=== PATIENT | female | born 1980 | race Two or more races ===

== ENCOUNTER 2020-06-25 17:04 | Observation (INO) | payer OTHER, SELFPAY ==
--- NOTE | 2020-06-25 16:53 | PC.NURSE ---
pt walked into er with c/o leaking fluid. states she is 30 weeks with expectant due date of September 01. States fluid started leaking yesterday and feel like the baby dropped. c/o pelvic pressure. called ob. report given to Katarina MOE. Taken to OB via wheelchair
[2020-06-25 17:38] VITALS: BP 98/62; PULSE 90
--- NOTE | 2020-06-26 17:26 | PM.OBTRLD ---
OB - Triage/Final Diagnosis Visit Information Comments/Additional reasons for admission: I have assessed the risk for this patient, Noelle Collado, and determined that she would benefit from observation care. Final Diagnosis (1) Vaginal discharge during : Code(s): O26.899 - Other specified related conditions, unspecified trimester; N89.8 - Other specified noninflammatory disorders of vagina Status: Acute
== END 2020-06-25 17:47 | disposition home or self-care (01) ==
PROVIDERS: Admitting Provider Obstetrics & Gynecology; Visit Provider Obstetrics & Gynecology
DX: O26.892 Other specified pregnancy related conditions, second trimester (principal); N89.8 Other specified noninflammatory disorders of vagina; Z3A.29 29 weeks gestation of pregnancy
CPT/HCPCS: 84112; G0378; G0379

== ENCOUNTER 2020-07-02 08:09 | Outpatient (CLI) | payer OTHER, SELFPAY ==
[2020-07-02 08:46] LABS: Glucose Fasting Gestational 88 mg/dL (>/=95)
[2020-07-02 10:14] LABS: Glucose 1 Hour Gest 120 mg/dL (>/=180)
[2020-07-02 11:09] LABS: Glucose 2 Hour Gest 101 mg/dL (>/= 155)
[2020-07-02 12:14] LABS: Glucose 3 Hour Gest 90 mg/dL (>/=140)
== END 2020-07-02 08:10 | disposition home or self-care (01) ==
PROVIDERS: Visit Provider Obstetrics & Gynecology
DX: R73.02 Impaired glucose tolerance (oral) (principal)
CPT/HCPCS: 36415; 82951; 82952

== ENCOUNTER 2020-07-25 12:12 | Observation (INO) | payer OTHER, SELFPAY ==
--- NOTE | ~2020-07-25 | US_ITS ---
EXAMINATION: US OB limited w BPP EXAM DATE: 07/25/2020 13:46 INDICATION: BPP, SHELLEY, placenta and incision check/abd pain. Low abdominal pain. 3rd trimester. TECHNIQUE: Pelvic obstetrical transabdominal sonogram was performed by a technologist. There are mu ltiple grayscale and Doppler images available for interpretation. Comparison is made to prior examina tion from 07/23/2020. FINDINGS: Scanning of a prior section scar demonstrated no sonographic abnormality. There is a single fetus identified in vertex presentation with a heart rate of 173 beats per minute. The plac enta is located in the fundal position. There is no sonographic evidence of retroplacental hemorrhag e identified. The amniotic fluid index is 13.9 centimeters, which is normal. BIOPHYSICAL PROFILE (performed by the technologist) breathing (30 sec sustained breathing in 30 minutes): 2 out of 2 movement (3 gross body movements in 30 minutes): 2 out of 2 tone (one episode of yxvmfen-nrbsgipyv-ohpfhpq limb movement): 2 out of 2 Amniotic fluid pocket (2 cm): 2 out of 2 Total score: 8 out of 8 IMPRESSION: 1. Single fetus with heart rate of 173 bpm. 2. Normal biophysical profile score of 8 out of 8. 3. Normal SHELLEY 14 cm. Reviewed, dictated and finalized at location A.
--- NOTE | 2020-07-25 12:25 | PC.NURSE ---
Called Dr. Leon with pt status. Informed of pt complaining of contractions. states low lying placenta with no follow up report. Dr. Leon able to look up results from follow up and confirm that it was no longer low lying. Orders received.
[2020-07-25 12:36] VITALS: BP 113/68; PULSE 96
[2020-07-25 13:01] VITALS: BP 100/69; PULSE 89
[2020-07-25] MEDS: LACTATED RINGERS 1,000 ML 999 ML IV CONT (13:06)
--- NOTE | 2020-07-25 13:20 | PC.NURSE ---
Called Dr. Leon with update. Occasional contractions seen on monitor that palpate mild. Abdomen soft. Some uterine irritability noted. Reactive tracing. Orders received.
[2020-07-25 13:30] LABS: Add Urine Microscopic? YES; Appearance Urine Cloudy (Clear); Bacteria Urine 1+ /hpf; Bilirubin Urine Negative (Negative); Blood Urine Negative (Negative); Color Urine Yellow (Yellow); Glucose Urine UA Negative (Negative); Ketones Urine Negative (Negative); Leukocyte Esterase Ur Trace LEU/UL (Negative); Mucus Urine Rare /lpf; Nitrate Urine Negative (Negative); Protein Urine Negative (Negative); Specific Grav Ur 1.011 (1.001-1.035); Squamous Epithelial Cell Urine Few /hpf (Few); Transitional Epi Cells Urine Rare /hpf (None Seen); Urobilinogen Urine Negative mg/dL (<2.0); WBC Urine 0-3 /hpf
--- NOTE | 2020-07-27 12:07 | PM.OBTRLD ---
OB - Triage/Final Diagnosis Visit Information Comments/Additional reasons for admission: I have assessed the risk for this patient, Noelle Ovalle, and determined that she would benefit from observation care. Evaluation Laboratory results: Laboratory Tests 07/25/20 13:18 Urine Color Yellow Urine Appearance Cloudy H Urine pH 8.0 Ur Specific [place] 1.011 Urine Protein Negative Urine Glucose (UA) Negative Urine Ketones Negative Ur Blood (Man) Negative Urine Nitrate Negative Urine Bilirubin Negative Urine Urobilinogen Negative Leukocyte Esterase Rfl Trace H Urine RBC 3-5 H Urine WBC 0-3 Ur Squamous Epith Cells Few Ur Transition Epith Cell Rare Urine Bacteria 1+ H Urine Mucus Rare Final Diagnosis (1) Abdominal pain affecting : Code(s): O26.899 - Other specified related conditions, unspecified trimester; R10.9 - Unspecified abdominal pain Status: Acute
== END 2020-07-25 14:45 | disposition home or self-care (01) ==
PROVIDERS: Admitting Provider Obstetrics & Gynecology; Visit Provider Obstetrics & Gynecology
DX: O26.893 Other specified pregnancy related conditions, third trimester (principal); R10.9 Unspecified abdominal pain; Z3A.34 34 weeks gestation of pregnancy
CPT/HCPCS: 76815; 76819; 81001; 96360; G0378; G0379; J7120

== ENCOUNTER 2020-08-11 11:57 | Observation (INO) | payer OTHER, SELFPAY ==
--- NOTE | 2020-08-11 14:22 | OBADM ---
This patient, Noelle Ovalle, admitted to the OB room Labor/Delivery/Recovery 120 for observation. Patient/family oriented to hospital policies and general routines including ID bracelet, bed and alarms, visiting hours, pain management, procedures, bathroom and other care routines, personal items, smoking policy, room service/diet, and visiting hours. Patient/Family are encouraged to report perceived risks to care and to ask questions if they do not understand what they are told or what they should do.
--- NOTE | 2020-08-17 07:25 | PM.OBTRLD ---
OB - Triage/Final Diagnosis Visit Information Comments/Additional reasons for admission: I have assessed the risk for this patient, Noelle Ovalle, and determined that she would benefit from observation care. Final Diagnosis (1) Abdominal pain affecting : Code(s): O26.899 - Other specified related conditions, unspecified trimester; R10.9 - Unspecified abdominal pain Status: Acute
== END 2020-08-11 14:35 | disposition home or self-care (01) ==
PROVIDERS: Admitting Provider Obstetrics & Gynecology; Visit Provider Obstetrics & Gynecology
DX: O26.893 Other specified pregnancy related conditions, third trimester (principal); R10.9 Unspecified abdominal pain; Z3A.37 37 weeks gestation of pregnancy
CPT/HCPCS: G0378; G0379

== ENCOUNTER 2020-08-13 11:43 | Outpatient (RCR) | payer OTHER, SELFPAY ==
[2020-07-07 16:41] VITALS: BP 100/55
[2020-07-23 12:10] VITALS: BP 106/63
--- NOTE | 2020-07-23 13:00 | PC.NURSE ---
BPP 09/19
[2020-07-30 12:58] VITALS: BP 103/60; PULSE 99
[2020-08-06 12:09] VITALS: BP 95/68; PULSE 104
--- NOTE | ~2020-08-13 | US_ITS ---
EXAMINATION: US OB follow up DATE: 08/06/2020 12:38 INDICATION: Advanced maternal age, third trimester TECHNIQUE: Real-time ultrasound of the pelvis was performed. The interpreting radiologist was not pre sent for the study. COMPARISON: 07/30/2020 FINDINGS: There is a single living fetus in vertex presentation and transverse lie. The placenta is f undal. cardiac activity and movement are noted. heart rate is 157 beats per minute (bpm). The amniotic fluid index is 9.3 cm which is normal. The following biometric data were obtained: Biparietal diameter (BPD): 9.1 cm; head circumference (HC): 31.9 cm; abdominal circumference (AC): 31 .7 cm; femur length (FL): 6.3 cm. All calculated ratios are greater than two standard deviations belo w the mean except for the head circumference to abdominal circumference ratio which is normal. Estima neida weight is 2576 g +/- 386 g, which correlates with the 21st percentile when 09/01/2020 is use d as estimated date of delivery. As single measurements, these parameters are each equal to the following estimated gestational ages w ith ranges of +/- 2 standard deviations: BPD: 37 weeks 0 days +/- 3 weeks 1 days. HC: 36 weeks 0 days +/- 3 weeks 0 days. AC: 35 weeks 5 days +/- 3 weeks 0 days. FL: 32 weeks 4 days +/- 3 weeks 0 days. estimated gestational age based solely on measurements from this exam is 35 weeks 2 days +/- 2 weeks 3 days. IMPRESSION: 1. Single living fetus in vertex presentation. 2. Normal amniotic fluid index. 3. Estimated weight is 2576 g +/- 386 g, which correlates with the 21st percentile when 09/02/19 21 is used as estimated date of delivery. Reviewed, dictated and finalized at location A. IMPRESSION: 1. Single living fetus in vertex presentation. 2. Normal amniotic fluid index. 3. Estimated weight is 2576 g +/- 386 g, which correlates with the p ercentile when 09/01/2020 is used as estimated date of delivery.
--- NOTE | ~2020-08-13 | US_ITS ---
EXAMINATION: US OB BPP wo non-stress DATE: 07/23/2020 13:16 CDT INDICATION: Advanced maternal age TECHNIQUE: Real-time transabdominal obstetric ultrasound. FINDINGS: No prior studies for comparison. There is a single living fetus in vertex presentation. The placenta is fundal without placenta previ a. cardiac activity and movement is noted with a heart rate of 142 beats per minute. Biophysical profile: breathin of 2 movement: 2 of 2 tone: 2 of 2 Amniotic flud pocket: 2 of 2 Total score: 8 of 8 IMPRESSION: 1. Single living intrauterine in vertex presentation. 2: Total biophysical profile score of 8/8. Reviewed, dictated and finalized at location B.
--- NOTE | ~2020-08-13 | US_ITS ---
EXAMINATION: US OB BPP wo non-stress DATE: 08/13/2020 12:51 INDICATION: History of loss, advanced maternal age, third trimester TECHNIQUE: Real-time pelvic ultrasound was performed. The interpreting radiologist was not present fo r the study. COMPARISON: 08/06/2020 FINDINGS: There is a single living fetus in vertex presentation. The placenta is fundal. heart rate is 15 9 beats per minute (bpm). Biophysical profile performed by the technologist: breathing (30 sec sustained breathing in 30 minutes): 2 out of 2 movement (3 gross body movements in 30 minutes): 2 out of 2 tone (one episode of lrzgolq-iqsefsqqx-zeijosj limb movement): 2 out of 2 Amniotic fluid pocket (2 cm): 2 out of 2 Total score: 8 out of 8 IMPRESSION: 1. Single living fetus in vertex presentation. 2. Biophysical profile 8 out of 8. Reviewed, dictated and finalized at location B.
--- NOTE | ~2020-08-13 | US_ITS ---
EXAMINATION: US OB limited w BPP DATE: 07/07/2020 16:39 CDT INDICATION: Advanced gestational age. TECHNIQUE: Real-time transabdominal obstetric ultrasound. FINDINGS: No prior studies for comparison. There is a single living fetus in vertex presentation. The placenta is fundal without placenta previ a. Amniotic fluid is normal. SHELLEY measures 20.74 cm. cardiac activity and movement is noted with a heart rate of 167 beats per minute. Biophysical profile: breathin of 2 movement: 2 of 2 tone: 2 of 2 Amniotic flud pocket: 2 of 2 Total score: 8 of 8 IMPRESSION: 1. Single living intrauterine in vertex presentation. 2: Total biophysical profile score of 8/8. Reviewed, dictated and finalized at location A.
--- NOTE | ~2020-08-13 | US_ITS ---
EXAMINATION: US OB BPP wo non-stress DATE: 07/16/2020 12:25 INDICATION: Advanced maternal age. Third trimester. TECHNIQUE: Real-time pelvic ultrasound was performed. COMPARISON: Ultrasound 07/07/2020 FINDINGS: There is a single living fetus in vertex presentation. The placenta is fundal. heart rate is 1 63 beats per minute (bpm). The amniotic fluid volume is subjectively normal. Biophysical profile performed by the technologist: breathing (30 sec sustained breathing in 30 minutes): 2 out of 2 movement (3 gross body movements in 30 minutes): 2 out of 2 tone (one episode of irumnio-fqnrbepry-xqpcryv limb movement): 2 out of 2 Amniotic fluid pocket (2 cm): 2 out of 2 Total score: 8 out of 8 IMPRESSION: 1. Single living fetus in vertex presentation. 2. Biophysical profile 8 out of 8. Reviewed, dictated and finalized at location A.
--- NOTE | ~2020-08-13 | US_ITS ---
EXAMINATION: US OB BPP wo non-stress EXAM DATE: 07/30/2020 12:48 INDICATION: History of term loss. BPP. 3rd trimester. TECHNIQUE: Pelvic obstetrical transabdominal sonogram was performed by a technologist. There are mu ltiple grayscale and Doppler images available for interpretation. Comparison is made to prior examina tion from 07/25/2020. FINDINGS: There is a single fetus identified in vertex presentation with a heart rate of 131 beats pe r minute. The placenta is located in the posterior position. There is no sonographic evidence of ret roplacental hemorrhage identified. There is subjectively expected amount of amniotic fluid. BIOPHYSICAL PROFILE (performed by the technologist) breathing (30 sec sustained breathing in 30 minutes): 2 out of 2 movement (3 gross body movements in 30 minutes): 2 out of 2 tone (one episode of bpddbta-ditgjtegi-cfsgxtl limb movement): 2 out of 2 Amniotic fluid pocket (2 cm): 2 out of 2 Total score: 8 out of 8 IMPRESSION: 1. Single fetus with heart rate of 131 bpm. 2. Normal biophysical profile score of 8 out of 8. Reviewed, dictated and finalized at location B.
[2020-08-13 16:11] VITALS: BP 100/66; PULSE 99
== END 2020-08-18 15:40 | disposition home or self-care (01) ==
LOC: ANHOBOP 11:43
PROVIDERS: Visit Provider Obstetrics & Gynecology
DX: O09.513 Supervision of elderly primigravida, third trimester (principal); O09.293 Supervision of pregnancy with other poor reproductive or obstetric history, third trimester; Z3A.32 32 weeks gestation of pregnancy; Z3A.33 33 weeks gestation of pregnancy; Z3A.34 34 weeks gestation of pregnancy; Z3A.35 35 weeks gestation of pregnancy; Z3A.36 36 weeks gestation of pregnancy; Z3A.37 37 weeks gestation of pregnancy
CPT/HCPCS: 59025; 76815; 76816; 76819

== ENCOUNTER 2020-08-18 11:19 | Inpatient (IN) | payer OTHER, SELFPAY ==
--- NOTE | 2020-08-04 16:23 | PC.NURSE ---
VERIFIED WITH OR SCHEDULE AND PATIENT--C/S WITH TUBAL LIGATION ON 08/25/20 AT 0730 PATIENT GIVEN REQUISITION FOR LAB DRAW ON 08/24/20
[2020-08-18] VITALS (45 sets, daily range): BP systolic 82–109; BP diastolic 45–84; PULSE 58–90; RESP 14–18; TEMP 35.9–36.9; O2SAT 97–100; BMI 33.8
--- NOTE | 2020-08-18 13:20 | PM.IMHP ---
H&P: HPI History of Present Illness Date/Time: 08/18/20 13:20 Noelle is a 40yo @ 38.0wks (TARA 09/01/20) who presented to clinic with complaints of concerns for rupture of membranes and painful contractions. She reported good movement. No bleeding. She was sent to L&D where ROM+ was negative. On NST, she was found to have occasional late decels while taylor q 5-8min. She has had regular care and testing since 32wks. Her is complicated by: - H/o previous ; declined TOLAC - Undesired future fertility; BTL papers signed 07/06/20 - H/o full term twin demise in [place]; concern for mono-mono twin cord entanglement - AMA; NIPT low risk, male-- s/p testing, on ASA Chief Complaint: contractions and leakage of fluid Review of Systems Review of Systems: All systems reviewed & are unremarkable except as noted in HPI and below (HPI) [facility] Family History Family History Other No pertinent family history Social History Social History Substance use: never Spiritual care concerns: No Meds Home Medications and Allergies Home Medications Medication Instructions Recorded Confirmed Type PNV comb no.58-iron bisgly-FA 1 cap PO DAILY 06/25/20 08/11/20 History aspirin 81 mg PO DAILY 06/25/20 08/11/20 History Allergies Allergy/AdvReac Type Severity Reaction Status Date / Time No Known Allergies Allergy Verified 08/04/20 16:02 Vital Signs Vital Signs - 24 hr 08/18/20 11:34 08/18/20 11:46 08/18/20 12:00 Temperature 36.2 C L Pulse Rate 86 79 81 Blood Pressure 93/60 L 101/67 94/59 L 08/18/20 12:15 08/18/20 12:30 08/18/20 12:45 Temperature Pulse Rate 80 89 83 Blood Pressure 95/66 L 96/67 L 89/58 L 08/18/20 13:00 08/18/20 13:15 Temperature Pulse Rate 86 90 Blood Pressure 94/65 L 90/62 L Exam Const: General: cooperative, healthy appearing and in distress (with contractions) moderate Resp: Effort & Inspection: normal respiratory effort and able to speak in complete sentences Cardio: Rate: regular rate GI: Inspection: normal to inspection GI Palp: Yes Soft to palpation and No Tenderness to palpation present (GI) : Other: FHT's: 150's/ mod jermain/ + accels/ occasional late and variable decels - cat 2 TOCO: ctx q5-8min Membranes: intact Cervix: 1/thick/high Presentation: cephalic Skin: General skin exam: normal color Neuro: General: patient oriented x3 Extrem: General: normal to inspection Psych: Appearance: grossly normal Affect: normal affect Attitude: cooperative Assessment and Plan Assessment and plan (1) Previous section: Code(s): Z98.891 - History of uterine scar from previous surgery Status: Acute (2) heart deceleration: Status: Acute (3) Encounter for sterilization: Code(s): Z30.2 - Encounter for sterilization Status: Acute (4) AMA (advanced maternal age) multigravida 35+: Qualifiers: Trimester: third trimester Qualified Code(s): O09.523 - Supervision of elderly multigravida, third trimester Code(s): O09.529 - Supervision of elderly multigravida, unspecified trimester Status: Acute Additional Plan - heart decels after 37 weeks indication for delivery - Proceed with repeat section with bilateral tubal ligation - Risks and benefits explained - Anesthesia consult - Pedi at delivery
--- NOTE | 2020-08-18 13:29 | P.PNAN_ITS ---
Anes - Initial Pre Proc Eval Procedure: Operation Date: 08/25/20 07:30 Proposed Procedures p Repeat Section with Bilateral Tubal Sterilization - Caprice Leon MD Date/Time: 08/18/20 13:29 Surgeon: Caprice Leon MD Pre Op Diagnosis: c/s Patient Data Age: 40 Gender: F Height: Weight: Last Vital Signs Temp 36.2 C L 08/18/20 11:34 Pulse 90 08/18/20 13:15 BP 90/62 L 08/18/20 13:15 Allergies Allergy/AdvReac Type Severity Reaction Status Date / Time No Known Allergies Allergy Verified 08/04/20 16:02 Home Medications Medication Instructions Recorded Confirmed Type PNV comb no.58-iron bisgly-FA 1 cap PO DAILY 06/25/20 08/11/20 History aspirin 81 mg PO DAILY 06/25/20 08/11/20 History : gestational age (TARA 09/01/20, (h/o term twin demise 14 year s ago)) Patient hx anesthesia problems: none Family hx anesthesia problems: none PMFSH Family History Family History Other No pertinent family history Social History Social History Substance use: never Spiritual care concerns: No Anes - Eval Final PreProcedure Day of Procedure 08/18/20 13:29 Patient weight: normal Heart: regular rate and rhythm Lungs: normal air movement Airway: Mallampati scale class II Neurological: alert and oriented Last oral intake: >/= 8 hours ASA classification: II Emergent: no Anesthetic plan: proceed Anesthesia type and monitoring: regional spinal and standard monitoring Other findings: IT Duramorph for Post op pain control Informed Consent: The patient's anesthetic plan and its attendant risks and benefits were discussed with the patient/family/POA. Questions were solicited and answers provided to the satisfaction of the patient/family/POA.
--- NOTE | 2020-08-18 13:30 | LDADM ---
This patient, Noelle Ovalle, was admitted to Labor/Delivery/Recovery 120 on 08/18/20 at 11:19. Plans for surgery/ and pain management were discussed with patient. Patient/family oriented to hospital policies and general routines including ID bracelet, bed and alarms, visiting hours, pain management, procedures, bathroom and other care routines, personal items, smoking policy, room service/diet and guest tray routines, infant security routines, and visiting hours. Patient/Family are encouraged to report perceived risks to care and to ask questions if they do not understand what they are told or what they should do. See OBIX for further documentation.
[2020-08-18] MEDS: LACTATED RINGERS 1,000 ML 999 ML IV CONT ×2 (13:36→14:04)
--- NOTE | 2020-08-18 13:36 | WPDANESEFPP ---
Anes - Eval Final PreProcedure Day of Procedure 08/18/20 13:36 Patient weight: overweight Heart: regular rate and rhythm Lungs: clear to auscultation and normal air movement Airway: Mallampati scale class II Neurological: alert and oriented Last oral intake: >/= 8 hours ASA classification: II Emergent: no Anesthetic plan: proceed Anesthesia type and monitoring: regional spinal and standard monitoring Informed Consent: The patient's anesthetic plan and its attendant risks and benefits were discussed with the patient/family/POA. Questions were solicited and answers provided to the satisfaction of the patient/family/POA.
[2020-08-18 13:48] LABS: Basophils Percent Auto 0.4 % (0.2-1.2); Eosinophils Absolute Auto 0.1 K/mm3 (0-0.3); Eosinophils Percent Auto 1.3 % (0-4.4); Hematocrit 34.1 % (37.0-47.0); Immature Granulocyte Absolute 0.13 K/mm3 (0.00-0.031); Immature Granulocyte Percent A 1.7 % (0-0.5); Lymphocytes Absolute Auto 1.39 K/mm3 (0.9-3.2); Lymphocytes Percent Auto 18.4 % (18.3-44.2); Mean Corpuscular HGB Conc 32.3 g/dl (32-36); Mean Corpuscular Hemoglobin 28.4 pg (26-34); Mean Corpuscular Volume 88.1 fl (80-100); Mean Platelet Volume 9.1 fl (7.4-10.4); Monocytes Absolute Auto 0.7 K/mm3 (0.1-0.6); Monocytes Percent Auto 9.5 % (2.6-8.5); Neutrophils Absolute Auto 5.2 K/mm3 (1.3-6.7); Neutrophils Percent Auto 68.7 % (45.5-73.1); Platelet Count Result 233 k/mm3 (150-375); Red Blood Count 3.87 M/mm3 (4.2-5.4); Red Cell Distribution Width 12.8 % (11.5-14.5); White Blood Count 7.6 K/mm3 (4.5-10.0)
--- NOTE | 2020-08-18 13:55 | WPDHPUPDATE1 ---
History and Physical Update Update Date/Time: 08/18/20 13:55 History and Physical has been reviewed, including an updated exam of the patient. There are NO changes in the patient's condition. Risks, benefits, and alternatives have been discussed and questions answered. Patient agrees to proceed with procedure.
[2020-08-18] MEDS: ceFAZolin 2 GM/D5W 50 ML 2 GM/50 ML BAG IVPB (14:09)
[2020-08-18] MEDS: OXYTOCIN 30 UNITS/NS 500 ML 30 UNITS/500 ML BAG 125 UNITS IV CONT (15:52)
--- NOTE | 2020-08-18 17:43 | SUR.PHASEI ---
Pt to nursery to see prior to transfer to .
--- NOTE | 2020-08-18 17:52 | PM.OBPRVD ---
OB - Delivery Note Procedure Delivery date: 08/18/20 Procedure: Procedures Operation Date: 08/18/20 14:00 Actual Procedure Side Surgeon p Repeat Section with Bilateral Tubal Sterilization Bilateral Caprice Leon MD Intrapartal events: Deceleration Route of delivery: (repeat with BTL) Quantitative Blood Loss (ml): 520 Anesthesia type: Spinal Disposition: floor [place] Baby Date of : 08/18/20 Time of : 14:41 Weeks of gestation at delivery: 38 gender: Male Weight (pounds): 5 Weight (ounces): 13 presentation: vertex Placenta delivery description: Expressed cord vessel description: 3 Vessels, Nuchal Cord, Loose and Reduced score one minute: 8 score five minutes: 8 Narrative: She was counseled on all risks and benefits in detail and desired to proceed with repeat section and bilateral tubal ligation. She was taken to the operating room where spinal epidural was placed. She was then prepped and draped in the normal sterile fashion. She received 2g Ancef and a time out was performed. A Pfannenstiel incision was made in the skin and carried down to the underlying fascia. The fascia was nicked on either side of the midline and the fascial incision was extended laterally and superiorly. The fascia was then elevated and the underlying rectus muscles were dissected off the fascia, superiorly and inferiorly. The rectus muscles were then in the midline and the peritoneum was entered bluntly. Once adequate exposure was obtained, a Mobius self retractor was placed within the abdomen. A bladder flap was created. A low transverse incision was made on the lower uterine segment and clear fluid was noted. The occiput was brought to the hysterotomy and the head was easily delivered, nuchal reduced. The shoulder and body then followed without complications. The had spontaneous cry and the mouth and nose were bulb suctioned. The cord was clamped and cut and the was handed off to the awaiting pediatric nurse. A segment of the cord was collected for cord gases. The remaining cord blood was collected for typing. With pitocin infusing, the placenta delivered with gentle traction on the cord without complications. The uterus was then cleared out of all clots and debris using a clean, moist lap. The hysterotomy was then repaired in a running, interlocking fashion using 0 Vicryl. A second layer imbricating suture was then made using 0 Vicryl. The hysterotomy was found to be hemostatic and good uterine tone was noted. The bilateral adnexa were examined and found to be normal. The left fallopian tube was grasped with a [place] clamp and elevated. A large segment of the tube was double ligated using 0 Chromic. The segment of the tube was cut using Metzenbaum scissors and the edges were made hemostatic with cautery. The right tube segment was removed in the same manner and both were found to be hemostaic. The pelvis was cleared of all clots and fluid. The Mobius retractor was removed from the abdomen. The peritoneum, muscle, and fascia were examined and made hemostatic with bovie cautery. The fascia was then repaired using a 0 Vicryl suture in a running fashion. The subcutaneous tissue was then irrigated and made hemostatic with bovie cautery. The subcutaneous tissue was then reapproximated using 2-0 Vicryl. The skin was then closed using 4-0 Monocryl in a running subcuticular fashion. The incision was then covered with a Mepilex dressing. Sponge, lap, needle, and instrument counts were correct at the end of the procedure x2. The patient tolerated the procedure well and was taken to recovery in a stable condition.
[2020-08-18] MEDS: KETOROLAC 30 MG/ML VIAL (*BKC) IV PUSH (19:03)
--- NOTE | 2020-08-18 19:41 | OBPPTRN ---
Patient transferred to post room #282 via bed. in level 2 nursery. Support person present. Oriented to unit, room, information board, rooming in, admission packet and security measures. Patient verbalizes understanding.
[2020-08-18] MEDS: HYDROcodone/acetaminophen (*CRX) 5-325 MG TABLET 1 TAB PO (23:53)
[2020-08-19] VITALS: PULSE 76; RESP 16; O2SAT 97
[2020-08-19] MEDS: diphenhydrAMINE HCl INJ 50 MG/ML VIAL 12.5 MG IV PUSH (00:15)
[2020-08-19] MEDS: KETOROLAC 30 MG/ML VIAL (*BKC) IV PUSH (02:09)
[2020-08-19] MEDS: HYDROcodone/acetaminophen (*CRX) 10-325 MG TABLET 1 TAB PO ×3 (05:11→17:26)
[2020-08-19 05:20] VITALS: BP 88/56; PULSE 74; RESP 16; TEMP 36.8; O2SAT 98
[2020-08-19 05:58] LABS: Basophils Percent Auto 0.2 % (0.2-1.2); Eosinophils Absolute Auto 0.2 K/mm3 (0-0.3); Eosinophils Percent Auto 1.6 % (0-4.4); Hematocrit 31.5 % (37.0-47.0); Hemoglobin 10.2 g/dL (12.0-15.0); Immature Granulocyte Absolute 0.07 K/mm3 (0.00-0.031); Immature Granulocyte Percent A 0.6 % (0-0.5); Lymphocytes Absolute Auto 1.34 K/mm3 (0.9-3.2); Lymphocytes Percent Auto 12.4 % (18.3-44.2); Mean Corpuscular HGB Conc 32.4 g/dl (32-36); Mean Corpuscular Hemoglobin 28.6 pg (26-34); Mean Corpuscular Volume 88.2 fl (80-100); Mean Platelet Volume 9.5 fl (7.4-10.4); Monocytes Absolute Auto 0.9 K/mm3 (0.1-0.6); Monocytes Percent Auto 8.4 % (2.6-8.5); Neutrophils Absolute Auto 8.3 K/mm3 (1.3-6.7); Neutrophils Percent Auto 76.8 % (45.5-73.1); Platelet Count Result 210 k/mm3 (150-375); Red Blood Count 3.57 M/mm3 (4.2-5.4); Red Cell Distribution Width 12.7 % (11.5-14.5); White Blood Count 10.8 K/mm3 (4.5-10.0)
[2020-08-19 07:30] VITALS: BP 100/59; PULSE 77; RESP 16; TEMP 37.1; O2SAT 100
[2020-08-19] MEDS: MULTIVIT/MIN/PREN/FOL AC/IRON TABLET 1 TAB PO (07:57)
[2020-08-19] MEDS: DOCUSATE SODIUM 100 MG CAPSULE PO ×2 (07:57→17:26)
--- NOTE | 2020-08-19 09:29 | WPDANLDPN2 ---
Anes-Prog Note L&D Date/Time: 08/19/20 09:29 Comfortable throughout: section Neuraxial method: spinal Epidural/Spinal procedure site: clean & non-tender Neuro status: Neuro function grossly intact. Cardiovascular status: normal Respiratory status: normal Airway patency: baseline Mental status: baseline Post-Op hydration status: normal Vital Signs: Last Vital Signs Temp 36.8 C 08/19/20 05:20 Pulse 74 08/19/20 05:20 Resp 16 08/19/20 05:20 BP 88/56 L 08/19/20 05:20 Pulse Ox 98 08/19/20 05:20 Pain score (VAS): 2 I/O: Intake & Output 08/18/20 08/19/20 08/19/20 23:59 07:59 15:59 Intake Total 900 Output Total 240 1900 Balance -240 -1000 Post-procedural complaints: none Patient feedback: Patient satisfied with anesthetic care.
--- NOTE | 2020-08-19 09:29 | WPDANLDNPN2 ---
Anes-Prog Note L&D-Neuraxial Date/Time: 08/19/20 09:29 Neuraxial medications: intrathecal PF morphine Opiod-related complaints: none Patient feedback: Patient satisfied with post-operative pain management.
[2020-08-19] MEDS: IBUPROFEN 600 MG TABLET PO ×2 (10:14→17:26)
[2020-08-19 12:11] LABS: Rapid Plasma Reagin Non-Reactive (NonReactive)
--- NOTE | 2020-08-19 12:41 | PM.OBPNVD ---
OB - PN: Subj Subjective Date/time seen: 08/19/20 06:41 POD#1 Noelle reports doing well. Her pain is controlled with the meds. She has not ambulated, did sit in the chair last night. She has not tried regular diet; tolerated clears w/o issue. Her catheter was just removed this morning; no void yet. She has passed gas. 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 She is wanting to pump. Her son was transferred overnight; already doing better. She denies CP, SOB, TREVINO, vision changes, N/V, dizziness or palpitations. OB - PN: Obj Data Labs CBC & Chem 7: 08/19/20 05:17 Labs: Laboratory Results - last 24 hr 08/18/20 08/18/20 08/18/20 13:38 13:39 13:39 WBC 7.6 RBC 3.87 L Hgb 11.0 L Hct 34.1 L MCV 88.1 MCH 28.4 MCHC 32.3 RDW 12.8 Plt Count 233 MPV 9.1 Immature Gran % (Auto) 1.7 H Neut % (Auto) 68.7 Lymph % (Auto) 18.4 [place] % (Auto) 9.5 H Eos % (Auto) 1.3 Baso % (Auto) 0.4 Lymph # (Auto) 1.39 [place] # (Auto) 0.7 H Eos # (Auto) 0.1 Baso # (Auto) 0.0 Abs Immat Gran (auto) 0.13 H Absolute Neuts (auto) 5.2 Absolute Nucleated RBC 0.0 Nucleated RBC % 0.0 RPR Non-reactive Blood Type O Positive Antibody Screen Negative 08/19/20 05:17 WBC 10.8 H RBC 3.57 L Hgb 10.2 L Hct 31.5 L MCV 88.2 MCH 28.6 MCHC 32.4 RDW 12.7 Plt Count 210 MPV 9.5 Immature Gran % (Auto) 0.6 H Neut % (Auto) 76.8 H Lymph % (Auto) 12.4 L [place] % (Auto) 8.4 Eos % (Auto) 1.6 Baso % (Auto) 0.2 Lymph # (Auto) 1.34 [place] # (Auto) 0.9 H Eos # (Auto) 0.2 Baso # (Auto) 0.0 Abs Immat Gran (auto) 0.07 H Absolute Neuts (auto) 8.3 H Absolute Nucleated RBC 0.0 Nucleated RBC % 0.0 RPR Blood Type Antibody Screen OB - PN A/P Assessment and Plan (1) S/P repeat low transverse : Code(s): Z98.891 - History of uterine scar from previous surgery Status: Acute (2) History of bilateral tubal ligation: Code(s): Z98.51 - Tubal ligation status Status: Acute Plan day: 1 Plan: routine care Time Spent With Patient Time: Total time spent is greater than 50% in coordination of care (as documented) at patient's floor/unit and/or counseling patient: Review of Systems Review of Systems: All systems reviewed & are unremarkable except as noted in HPI and below (HPI) Exam Const: General: cooperative, healthy appearing, comfortable and no acute distress Resp: Effort & Inspection: normal respiratory effort and able to speak in complete sentences Auscultation: clear to auscultation bilaterally Cardio: Rate: regular rate GI: Inspection: normal to inspection and incision (covered w/ clean dressing) Auscultation: normal bowel sounds : Other: fundus firm Skin: General skin exam: normal color Neuro: General: patient oriented x3 Extrem: General: normal to inspection Psych: Appearance: grossly normal Affect: normal affect Attitude: cooperative
[2020-08-19 17:15] VITALS: BP 102/64; PULSE 85; RESP 16; TEMP 36.4; O2SAT 100
--- NOTE | 2020-08-19 17:15 | PC.NURSE ---
Pt. went out on pass to visit baby at [facility]. Left at 1030 returned at 1715. Vitals stable.
[2020-08-19 20:20] VITALS: BP 90/54; PULSE 80; RESP 16; TEMP 36.6; O2SAT 99
[2020-08-19] MEDS: SIMETHICONE 80 MG TAB.CHEW PO (21:10)
[2020-08-19] MEDS: HYDROcodone/acetaminophen (*CRX) 5-325 MG TABLET 1 TAB PO (21:10)
[2020-08-19] MEDS: TETANUS,DIPHTHERIA,AC PERTUSSIS ADULT (0.5 ML) BOOSTRIX IM (21:22)
[2020-08-20] MEDS: HYDROcodone/acetaminophen (*CRX) 10-325 MG TABLET 1 TAB PO ×2 (04:49→09:34)
[2020-08-20] MEDS: SIMETHICONE 80 MG TAB.CHEW PO (04:49)
[2020-08-20] MEDS: IBUPROFEN 600 MG TABLET PO ×2 (04:50→12:34)
[2020-08-20 08:50] VITALS: BP 95/50; PULSE 74; RESP 16; TEMP 36.8; O2SAT 100
[2020-08-20] MEDS: MULTIVIT/MIN/PREN/FOL AC/IRON TABLET 1 TAB PO (08:51)
[2020-08-20] MEDS: DOCUSATE SODIUM 100 MG CAPSULE PO (08:51)
--- NOTE | 2020-08-20 11:32 | PC.NURSE ---
Patient viewed the discharge video Mother & Baby Care, The First Two Weeks . Patient was given the opportunity and encouraged to ask questions. Patient verbalized understanding of information shared and has been given the mother/baby guide for home reference.
[2020-08-20] MEDS: HYDROcodone/acetaminophen (*CRX) 5-325 MG TABLET 1 TAB PO (12:33)
--- NOTE | 2020-08-23 11:02 | PC.NURSE ---
Pt no show. Called and left message recommending the pt follow up with OB for any concerns.
--- NOTE | 2020-09-01 11:08 | PM.OBDSVD ---
DS: Admitting Diagnosis Admitting Diagnosis Admitting Diagnosis: contractions heart decelerations DS: Discharge Diagnosis Discharge Diagnosis (1) S/P repeat low transverse : Code(s): Z98.891 - History of uterine scar from previous surgery Status: Acute (2) Encounter for sterilization: Code(s): Z30.2 - Encounter for sterilization Status: Acute OB - DS: Summary OB Procedures : NST and Ultrasound OB Procedures Intrapartum: low cervical, transverse and Tubal ligation OB Procedures: : None Peripartum Data Infant Delivery Method: Section Procedures: Procedures Operation Date: 08/18/20 14:00 Actual Procedure Side Surgeon p Repeat Section with Bilateral Tubal Sterilization Bilateral Caprice Leon MD complications: none [place] 1: Gender: Male Disposition of : NICU Status at Discharge Functional status at discharge: independent ambulation Overall status at discharge: patient is back to baseline Time Spent with Patient Time attestation: Total time spent providing and/or coordinating discharge services: Time spent: Less than 30 minutes Exam Const: General: cooperative, healthy appearing, comfortable and no acute distress Resp: Effort & Inspection: normal respiratory effort and able to speak in complete sentences Auscultation: clear to auscultation bilaterally Cardio: Rate: regular rate GI: Inspection: normal to inspection, non-distended and incision (covered w/ clean dressing) GI Palp: Yes Soft to palpation Auscultation: normal bowel sounds : Other: fundus firm Skin: General skin exam: normal color Neuro: General: patient oriented x3 Extrem: General: normal to inspection Psych: Appearance: grossly normal Affect: normal affect Attitude: cooperative DS: Data Data Completed and Pending Completed studies during hospitalization: Pending at discharge 08/18/20 14:42 Surgical [PTH] Routine Discharge Plan Discharge Attending physician on discharge: Caprice Leon Consulting providers: Bogdan Gregorio Discharging Clinician: Caprice Leon Anticipated Discharge Date/Time: 08/20/20 12:00 Patient Disposition: Home, Self-Care Activity: may shower, may drive after 2 weeks and pelvic rest Diet: regular Wound Care Instructions: incision open to air Discharge Instructions: No heavy lifting >10 pounds, remove dressing by day 7 Education: Mom and Baby Guide Given to: Mother Follow-Up: Call your delivering provider's office for an appointment to be seen in: 4 Weeks Mom and baby should come to the [facility] for the follow-up appointment. Appointment Date/Time: August 23, 2020 at 10:00 am What to expect at your follow-up visit: Physical Assessment Call [phone] if you are unable to keep your appointment time. BREAST CARE: * Wear a snug supportive bra. * For engorgement discomfort: Breast Feeding: * Apply warm moist washcloths * Express milk as needed to relieve engorgement * Wear loose clothing * For sore nipples: * Identify correct latch-on * Apply warm moist washcloths before and after nursing * Air dry nipples after nursing * May apply Lansinoh cream to nipples ABDOMINAL INCISION: (if applicable) * Allow incision to air dry * Do NOT use lotions for powders on your incision * When showering, allow soap and water to run over the incision, but do not wash incision EPISIOTOMY/PERINEAL CARE: * Until bleeding stops, use your maximino bottle after urinating * Change your pad frequently throughout the day * No tub baths until seen by your physician - You may shower ACTIVITY: * Rest as much as possible. * Do not exercise or lift anything heavier than your baby (such as laundry or other children.) * Avoid stairs or driving as much as possi
== END 2020-08-20 14:08 | disposition home or self-care (01) | DRG 785 ==
LOC: ANHLDR 16:17 → ANHOB2 19:14
PROVIDERS: Admitting Provider Obstetrics & Gynecology; Visit Provider Obstetrics & Gynecology
PROC: 10D00Z1 Extraction of Products of Conception, Low, Open Approach (ICD-10-PCS; CPT 59514; principal; 2020-08-18 14:00)
DX: O76 Abnormality in fetal heart rate and rhythm complicating labor and delivery (principal); O34.211 Maternal care for low transverse scar from previous cesarean delivery; Z37.0 Single live birth; Z3A.38 38 weeks gestation of pregnancy; Z30.2 Encounter for sterilization; Z87.59 Personal history of other complications of pregnancy, childbirth and the puerperium
CPT/HCPCS: 36415; 85025; 86592; 86850; 86900; 86901; 88302; 90715; A9270; J0131; J0690; J1200; J1885; J2274; J2370; J2405; J2590; J7120

== ENCOUNTER 2021-06-06 14:03 | Outpatient (CLI) | payer OTHER, SELFPAY ==
--- NOTE | ~2021-06-06 | US_ITS ---
EXAMINATION: US pelvic complete w TV DATE: 06/06/2021 14:51 INDICATION: Excessive and frequent menstruation TECHNIQUE: Multiple transabdominal and endovaginal sonographic images of the pelvis were obtained. COMPARISON: None. FINDINGS: The uterus measures 9.4 x 5.9 x 4.9 cm. The endometrial complex measures 11 mm. An area of scarring is seen anteriorly in the lower uterine segment related to prior section. The right ovary measures 3.3 x 1.8 x 1.9 cm. The left ovary measures 2.7 x 1.9 x 1.7 cm. There is normal vascu lar flow in the ovaries. There is no free fluid in the pelvis. IMPRESSION: 1. No sonographic correlate for the patient's symptoms. Reviewed, dictated and finalized at location F.
[2021-06-06 15:48] LABS: Basophils Percent Auto 0.4 % (0.2-1.2); Eosinophils Absolute Auto 0.1 K/mm3 (0-0.3); Eosinophils Percent Auto 1.6 % (0-4.4); Hematocrit 39.2 % (37.0-47.0); Hemoglobin 13.2 g/dL (12.0-15.0); Immature Granulocyte Absolute 0.01 K/mm3 (0.00-0.031); Immature Granulocyte Percent A 0.2 % (0-0.5); Lymphocytes Percent Auto 27.3 % (18.3-44.2); Mean Corpuscular HGB Conc 33.7 g/dl (32-36); Mean Corpuscular Hemoglobin 30.9 pg (26-34); Mean Corpuscular Volume 91.8 fl (80-100); Mean Platelet Volume 9.6 fl (7.4-10.4); Monocytes Absolute Auto 0.4 K/mm3 (0.1-0.6); Monocytes Percent Auto 6.8 % (2.6-8.5); Neutrophils Absolute Auto 3.3 K/mm3 (1.3-6.7); Neutrophils Percent Auto 63.7 % (45.5-73.1); Platelet Count Result 266 k/mm3 (150-375); Red Blood Count 4.27 M/mm3 (4.2-5.4); Red Cell Distribution Width 11.7 % (11.5-14.5); White Blood Count 5.1 K/mm3 (4.5-10.0)
[2021-06-06 17:32] LABS: Thyroid Stimulating Hormone Reflex 0.033 uIU/mL (0.465-4.68)
[2021-06-06 19:17] LABS: Free T4 Free Thyroxine Reflex 1.22 ng/dL (0.78-2.19)
[2021-06-06 19:58] LABS: Total Triiodothyronine (T3) 1.29 NG/ML (0.97-1.69)
[2021-06-09 12:43] LABS: Testosterone Free 0.9 pg/mL (0.1-6.4); Testosterone Total 10 ng/dL (2-45)
[2021-06-10 07:37] LABS: FSH 4.8 mIU/mL (***); Progesterone 1.2 ng/mL (***); Prolactin 14.8 ng/mL (***)
[2021-06-11 22:41] LABS: Estradiol, Ultrasensitive 22 pg/mL
== END 2021-06-06 14:04 | disposition home or self-care (01) ==
PROVIDERS: Visit Provider Obstetrics & Gynecology
DX: N92.0 Excessive and frequent menstruation with regular cycle (principal)
CPT/HCPCS: 36415; 76830; 76856; 82670; 83001; 84144; 84146; 84402; 84403; 84439; 84443; 84480; 85025

== ENCOUNTER 2021-06-11 11:46 | Outpatient (CLI) | payer OTHER, SELFPAY ==
[2021-06-11 12:08] LABS: Basophils Percent Auto 0.5 % (0.2-1.2); Eosinophils Absolute Auto 0.1 K/mm3 (0-0.3); Eosinophils Percent Auto 2.2 % (0-4.4); Hematocrit 40.4 % (37.0-47.0); Hemoglobin 13.4 g/dL (12.0-15.0); Immature Granulocyte Absolute 0.01 K/mm3 (0.00-0.031); Immature Granulocyte Percent A 0.2 % (0-0.5); Lymphocytes Absolute Auto 1.44 K/mm3 (0.9-3.2); Lymphocytes Percent Auto 35.1 % (18.3-44.2); Mean Corpuscular HGB Conc 33.2 g/dl (32-36); Mean Corpuscular Hemoglobin 30.7 pg (26-34); Mean Corpuscular Volume 92.4 fl (80-100); Mean Platelet Volume 9.1 fl (7.4-10.4); Monocytes Absolute Auto 0.3 K/mm3 (0.1-0.6); Monocytes Percent Auto 7.6 % (2.6-8.5); Neutrophils Absolute Auto 2.2 K/mm3 (1.3-6.7); Neutrophils Percent Auto 54.4 % (45.5-73.1); Platelet Count Result 277 k/mm3 (150-375); Red Blood Count 4.37 M/mm3 (4.2-5.4); Red Cell Distribution Width 11.8 % (11.5-14.5); White Blood Count 4.1 K/mm3 (4.5-10.0)
[2021-06-15 05:26] LABS: Thyroid Peroxidase Antibodies <1 IU/mL (<9)
[2021-06-15 14:27] LABS: Testosterone Free 1.1 pg/mL (0.1-6.4); Testosterone Total 9 ng/dL (2-45)
[2021-06-15 20:06] LABS: FSH 9.2 mIU/mL (***); Progesterone <0.2 ng/mL (***); Prolactin 10.8 ng/mL (***)
[2021-06-17] LABS: Estradiol, Ultrasensitive 23 pg/mL
== END 2021-06-11 11:47 | disposition home or self-care (01) ==
PROVIDERS: PCP Family Medicine; Visit Provider Obstetrics & Gynecology
DX: N92.0 Excessive and frequent menstruation with regular cycle (principal); R79.89 Other specified abnormal findings of blood chemistry
CPT/HCPCS: 36415; 82670; 83001; 84144; 84146; 84402; 84403; 84443; 85025; 86376

== ENCOUNTER 2021-12-12 00:48 | Day surgery (SDC) | payer OTHER, SELFPAY ==
[2021-12-05 14:39] VITALS: BMI 27.1
--- NOTE | 2021-12-05 15:10 | PC.NURSE ---
Report to the Outpatient Waiting Room, entrance under the green pavilion located off [facility], at time _0600_on date 12/12/21 . Planned Procedure Time: _07 . Time changes happen often and if your time is changed the preop area will call you the afternoon before. - You and your visitor will be asked to self-screen and do not enter if you have any COVID symptoms. TWO VISITORS ARE ALLOWED IN THE SURGERY DEPT. - We encourage only one visitor and NO visitors under age 16 are allowed at this time. Your visitor will receive communication by the phone number that is given day of service. - The patient visitor is requested to social distance or may leave the building when not with patient due to restrictions. - A mask is NO LONGER required within the hospital. Patients may have clear liquids (water, carbonated beverages, clear teas, apple juice) until 3 hours prior to surgery with a maximum of 20 ounces. - No food from midnight until time of surgery - Infants may have breast milk until 4 hours before surgery, infant formula 6 hours prior to surgery. - Children will be allowed to drink immediately following surgery. If applicable, please bring a bottle or sippy cup to assist with drinking. Juice, water, soda, and popsicles are readily available. For infants on formula, please bring formula the day of surgery. Pacifiers are allowed. Take the following medications with a SIP of water the morning of surgery: __N/A Medications to discontinue per physician N/A Date to take last dose___N/A Please no make-up, nail mohawk, hairspray, perfume, deodorant, or body powder the day of surgery. No jewelry (including any body piercings) or valuables the day of surgery, leave them at home. Please take a shower or bath the night before, or the morning of, surgery with an antibacterial soap. Wear comfortable, loose fitting clothing. Children are encouraged to wear pajamas. - Jewelry must be removed prior to entering the operating room. Rings and piercings that are not removed may be cut off. - The hospital will not accept responsibility for valuables. - Please leave all valuables, including medications, at home the day of surgery. If you are going home after surgery, a licensed meals on wheels driver must drive you home. - NO public transportation without another adult. - We recommend that an adult stay with you for 24 hours following discharge. - We also recommend that you do not drive, make important decision, drink alcoholic beverages, or take any drugs that were not prescribed by your health care provider for at least 24 hours after your discharge time. Follow any additional instructions given to you from your surgeon. If you or anyone in your household have experienced Covid symptoms in the past week, please notify your surgeon or the nurse liaison at the phone number below for possible testing. Telephone instructions given to _CARLY and asked if any additional questions and then verbalized understanding. Patient advised to call surgeon office or pre surgery nurse liaison [phone] if any additional questions.
--- NOTE | 2021-12-11 08:02 | PM.IMHP ---
H&P: HPI History of Present Illness Date/Time: 12/11/21 08:02 Chief Complaint: Pelvic pain/AUB Narrative: Nohelia is a 41yo P2001, who presents for scheduled hysterectomy. Since her + BTL, she reports significant pelvic pain and abnormal periods that are extremely heavy and painful. The chronic pelvic pain is making her depressed. The pain initially was only during her periods, it is now all the time. She reports prior to her second , she had very heavy and painful periods. Her OBGYN at the time, tried OCPs which only made her migraines severe. She also had tried multiple progesterone options, which did not help and only made the bleeding irregular and affected her mood. She was told she may have endometriosis. She reports sex is also very painful; has severe cramping after. She states that she takes ibuprofen and Tylenol all the time. The first two days of her most recent cycle weren't too bad until day 3-4 which were very heavy with clots. EMB performed 07/2021 which was benign. Pap smear on 09/2021 was NILM/HPV neg. She has talked with multiple family members who have had total hysterectomies and she also would like to proceed with total hysterectomy with removal of her ovaries. She understands that she will need estrogen hormone replacement as removing her ovaries will put her in menopause. Review of Systems Review of Systems: All systems reviewed & are unremarkable except as noted in HPI and below PMFSH Surgical History Surgical History History of breast augmentation History of tubal ligation History of umbilical hernia repair S/P repeat low transverse Family History Family History Other No pertinent family history Social History Social History Smoking status: Never smoker Second hand tobacco smoke exposure: No Alcohol intake: never Substance use: never Substance use type: does not use Living arrangements: with family Spiritual care concerns: No Meds Home Medications and Allergies Home Medications Medication Instructions Recorded Confirmed Type No Home Medications 12/05/21 12/05/21 History Allergies Allergy/AdvReac Type Severity Reaction Status Date / Time No Known Allergies Allergy Verified 09/20/21 09:05 Exam Const: General: cooperative, healthy appearing, comfortable and no acute distress Resp: Effort & Inspection: normal respiratory effort Cardio: Rate: regular rate GI: Inspection: normal to inspection GI Palp: No abdominal tenderness and Yes Soft to palpation : Other: deferred to OR Skin: General skin exam: normal color Neuro: General: patient oriented x3 Extrem: General: normal to inspection Psych: Appearance: grossly normal Affect: normal affect Attitude: cooperative Assessment and Plan Assessment and plan (1) Chronic pelvic pain in female: Code(s): R10.2 - Pelvic and perineal pain; G89.29 - Other chronic pain Status: Acute (2) Menorrhagia: Qualifiers: Menorrhagia type: with regular cycle Qualified Code(s): N92.0 - Excessive and frequent menstruation with regular cycle Code(s): N92.0 - Excessive and frequent menstruation with regular cycle Status: Acute (3) History of bilateral tubal ligation: Code(s): Z98.51 - Tubal ligation status Status: Acute Plan - Pt desires to proceed with Robotic assisted total laparoscopic hysterectomy with bilateral salpingo-oophorectomy with cystoscopy; she has been told she has endometriosis and had multiple other family members with total hysterectomies and wants her ovaries removed as well - She understands the risks of increased mortality with BSO before 65yo and still wants to proceed - she also understands that we would continue estrogen replacement until at least 50yo. - Ris
[2021-12-12] VITALS (9 sets, daily range): BP systolic 95–119; BP diastolic 55–78; PULSE 66–83; RESP 14–23; TEMP 36–36.3; O2SAT 96–100
--- NOTE | 2021-12-12 06:55 | WPDHPUPDATE1 ---
History and Physical Update Update Date/Time: 12/12/21 06:55 History and Physical has been reviewed, including an updated exam of the patient. There are NO changes in the patient's condition. Risks, benefits, and alternatives have been discussed and questions answered. Patient agrees to proceed with procedure.
[2021-12-12] MEDS: KETOROLAC 15 MG/ML VIAL (*BKC) IV PUSH (07:15)
[2021-12-12] MEDS: ACETAMINOPHEN 500 MG TABLET 1000 MG PO ×3 (07:15→18:13)
[2021-12-12] MEDS: LACTATED RINGERS 1,000 ML 30 ML IV CONT ×2 (07:15→09:23)
--- NOTE | 2021-12-12 07:15 | WPDANESEPPF ---
Anes - Initial Pre Proc Eval Procedure: Operation Date: 12/12/21 07:30 Proposed Procedures p Robotic Assisted Laparoscopic Hysterectomy with Bilateral Salpingo Oophorectomy - Caprice Leon MD Date/Time: 12/12/21 07:15 Surgeon: Caprice Leon MD Pre Op Diagnosis: menometrorrhagia, Pelvic pain Patient Data Age: 41 Gender: F Height: 1.52 m Weight: 63 kg Allergies Allergy/AdvReac Type Severity Reaction Status Date / Time No Known Allergies Allergy Verified 09/20/21 09:05 Home Medications Medication Instructions Recorded Confirmed Type No Home Medications 12/05/21 12/05/21 History Patient hx anesthesia problems: none Family hx anesthesia problems: none Results Review: All pre-operative results and documents have been reviewed as part of the pre-operative evaluation. [facility] Past Medical History Medical History Hx of migraines Surgical History Surgical History History of breast augmentation History of tubal ligation History of umbilical hernia repair S/P repeat low transverse Family History Family History Other No pertinent family history Social History Social History Smoking status: Never smoker Second hand tobacco smoke exposure: No Alcohol intake: never Substance use: never Substance use type: does not use Living arrangements: with family Spiritual care concerns: No Anes - Eval Final PreProcedure Day of Procedure 12/12/21 07:15 Patient weight: overweight Heart: regular rate and rhythm Lungs: clear to auscultation Airway: Mallampati scale class II Neurological: alert and oriented Last oral intake: >/= 8 hours ASA classification: II Emergent: no Anesthetic plan: proceed Anesthesia type and monitoring: general ETT and standard monitoring Results Review: All pre-operative results and documents have been reviewed as part of the pre-operative evaluation. Informed Consent: The patient's anesthetic plan and its attendant risks and benefits were discussed with the patient/family/POA. Questions were solicited and answers provided to the satisfaction of the patient/family/POA.
[2021-12-12] MEDS: ceFAZolin 2 GM/D5W 50 ML 2 GM/50 ML BAG IVPB (07:48)
[2021-12-12] MEDS: LIDO 2%/EPINEPHRINE 1:100,000 50 ML VIAL 20 ML INFILTRATE (08:03)
--- NOTE | 2021-12-12 09:14 | W.PM.PROC2 ---
Procedure Note - Detailed Date of Procedure 12/12/21 Pre-op Diagnosis menometrorrhagia, Pelvic pain Post-op Diagnosis Same Procedure Performed Robotic assisted total laparoscopic hysterectomy, bilateral salpingo-oophorectomy, with cystoscopy Surgeon Caprice Leon MD Vending Machine Host/Hostess Raymond Anesthesia General Findings Uterus sounded to 10cm; normal uterus and ovaries, prior history of tubal noted. Small omental adhesions to the mid abdomen and left pelvic adhesions which were taken down. Bladder adhesions to the lower uterine segment from her prior c-sections; bladder back filled without issue. On cysto; normal bladder without masses or defects; bilateral ureteral efflux noted. Good hemostasis at end of case. Description of Procedure Noelle was taken to the operating room where she was placed under general anesthesia without issues. She received 2 g Ancef. She was then prepped and draped in the usual sterile fashion in the dorsal lithotomy position with her legs in low Kb stirrups and her arms tucked at her side. A time-out was performed. My attention was turned down below where a preciado catheter was placed. A bivalve speculum was placed within the vagina. The cervix was easily identified and the anterior lip of the cervix was grasped with single-tooth tenaculum. The uterus was then sounded to 10cm. The cervix was serially dilated to allow for the RACHELLE uterine manipulator; which was placed w/o issue (8cm tip with 3cm cervical ring). My gloves were changed and attention was then turned to the abdomen. A supraumbilical incision was made, and a 5 mm trocar was placed under direct visualization. Once intra-abdominal placement was confirmed, the abdomen was insufflated with carbon dioxide gas. An abdominal survey was performed and the above findings were noted. Two additional ports were placed on the right side and one additional port on the left side under direct visualization without issues. The umbilical port was switched out for a robotic port under direct visualization. Omental adhesions to the mid abdomen were easily taken down. The patient was then placed in deep Trendelenburg, with the legs slightly lowered. The robot was then docked. The instruments were placed intra-abdominally under direct visualization. I then un-scrubbed and went to the robotic console. I then started my hysterectomy on the right side. The ureter was easily identified transperitoneally and well out of the surgical field. The IP ligament was identified, was elevated, and then coagulated and transected. The round ligament was clamped, coagulated, and transected. The broad ligament was then dissected anteriorly and posteriorly skeletonizing the uterine artery. Due to her prior two c-sections, the bladder was back filled to verify it was well out of the surgical field. The bladder flap was then developed on the right side and carried around the left, anteriorly. The uterine artery was then serially clamped and coagulated. Once the vessel was adequately coagulated, it was then transected with good hemostasis. The same procedure was then performed on the left side without complications. The uterus was noted to be devascularized. The bladder flap was verified out of the surgical field and the colpotomy was started anteriorly and continued in a clockwise fashion until the uterus was released. The uterus was removed from the abdomen via the vagina without complications. The vaginal cuff had small bleeders that were made hemostatic without complications. The vaginal cuff was then reapproximated using a 0 V lock suture. The pelvis was then irrigated and suctioned free of all clots and debris. Good hemostasis was noted on all pedicles. All instruments were removed from the abdomen and the robot was undocked. I then scrubbed back in and verified that the cuff was intact without any defects. The Preciado catheter was then removed. The cystoscope was placed within the bladder, which filled without d
[2021-12-12] MEDS: ONDANSETRON INJ 4 MG/2 ML VIAL IV PUSH ×2 (10:23→19:26)
--- NOTE | 2021-12-12 10:40 | PC.NURSE ---
This patient, Noelle Ovalle, was received from PACU on 12/12/21 at 1040. Patient/family oriented to unit policies and routines
[2021-12-12] MEDS: LACTATED RINGERS 1,000 ML 75 ML IV CONT (11:00)
[2021-12-12] MEDS: ESTRADIOL 7 DAY 0.1 MG PATCH TRANSDERM (12:24)
[2021-12-12] MEDS: KETOROLAC 30 MG/ML VIAL (*BKC) IV PUSH ×2 (12:54→19:24)
[2021-12-12] MEDS: ARTIFICIAL TEARS OPHTH SOLN 15 ML BOTTLE 1 DROP EACH EYE (14:38)
[2021-12-12] MEDS: oxyCODONE HCL (*CRX) 5 MG TAB IR 10 MG PO ×2 (15:39→22:42)
[2021-12-12] MEDS: DOCUSATE SODIUM 100 MG CAPSULE PO (18:13)
[2021-12-12] MEDS: WITCH HAZEL 40 PADS 1 PAD TOPICAL (19:25)
[2021-12-12] MEDS: DIBUCAINE 1% OINTMENT 30 GM TUBE 1 APPLIC TOPICAL (19:25)
[2021-12-12] MEDS: SIMETHICONE 80 MG TAB.CHEW PO (19:25)
--- NOTE | 2021-12-12 20:47 | PC.NURSE ---
Pt states she is having similar issues with her sensation being decreased in her feet/hands/face as she had after her 15 months ago. Pt is able to move all extremities and states she can feel when touched or when she holds or grabs things. Pt describes it as when you sit on your leg and it goes slightly numb and you can't feel it as well. Pt denies any pain or tingling to her extremities. Pt is currently ambulating in the halls with a steady gait.
[2021-12-13 00:45] VITALS: BP 90/56; PULSE 78; RESP 16; TEMP 36.7; O2SAT 100
[2021-12-13] MEDS: ACETAMINOPHEN 500 MG TABLET 1000 MG PO ×2 (00:45→08:16)
[2021-12-13] MEDS: IBUPROFEN 600 MG TABLET PO ×2 (00:45→08:17)
[2021-12-13 04:50] VITALS: BP 104/66; PULSE 74; RESP 16; TEMP 36.8; O2SAT 99
[2021-12-13] MEDS: oxyCODONE HCL (*CRX) 5 MG TAB IR PO ×2 (04:53→08:17)
[2021-12-13 06:31] LABS: Basophils Percent Auto 0.2 % (0.2-1.2); Eosinophils Percent Auto 0.1 % (0-4.4); Hematocrit 34.8 % (37.0-47.0); Hemoglobin 11.9 g/dL (12.0-15.0); Immature Granulocyte Absolute 0.03 K/mm3 (0.00-0.031); Immature Granulocyte Percent A 0.3 % (0-0.5); Lymphocytes Absolute Auto 1.47 K/mm3 (0.9-3.2); Lymphocytes Percent Auto 17.1 % (18.3-44.2); Mean Corpuscular HGB Conc 34.2 g/dl (32-36); Mean Corpuscular Hemoglobin 31.5 pg (26-34); Mean Corpuscular Volume 92.1 fl (80-100); Mean Platelet Volume 10.6 fl (7.4-10.4); Monocytes Absolute Auto 0.7 K/mm3 (0.1-0.6); Monocytes Percent Auto 8.2 % (2.6-8.5); Neutrophils Absolute Auto 6.4 K/mm3 (1.3-6.7); Neutrophils Percent Auto 74.1 % (45.5-73.1); Platelet Count Result 192 k/mm3 (150-375); Red Blood Count 3.78 M/mm3 (4.2-5.4); Red Cell Distribution Width 11.7 % (11.5-14.5); White Blood Count 8.6 K/mm3 (4.5-10.0)
[2021-12-13 06:44] LABS: Anion Gap 9 mmol/L (8-16); Blood Urea Nitrogen 6 mg/dL (7-17); Calcium 8.2 mg/dL (8.4-10.2); Carbon Dioxide 23 mmol/L (22-30); Chloride 105 mmol/L (98-107); Estimated CRCL calculation 104 ml/min; Estimated Glomerular Filt Rate > 60; Glucose 96 mg/dL (65-110); Potassium 3.4 mmol/L (3.4-5.0); Sodium 137 mmol/L (137-145)
--- NOTE | 2021-12-13 07:01 | PM.GYNPNOP ---
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 (1) S/P laparoscopic hysterectomy: Code(s): Z90.710 - Acquired absence of both cervix and uterus Status: Acute Postoperative Procedures: Procedures Operation Date: 12/12/21 07:30 Actual Procedure Side Surgeon p Robotic Assisted Laparoscopic Hysterectomy with Bilateral Salpingo Oophorectomy, Cystoscopy Bilateral Caprice Leon MD Postoperative day: 1 Postoperative status: doing well Postoperative plan: routine post-op care, advance diet and discharge Time Spent With Patient Time: Total time spent is greater than 50% in coordination of care (as documented) at patient's floor/unit and/or counseling patient: Time with patient: less than 15 minutes [employer]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 She reports her pain is controlled on PO meds. She has voided and passed gas. She has tolerated clears; had some vomiting yesterday but none overnight and ordered regular diet this morning. She has ambulated without symptoms of anemia. She has the estrogen patch on and denies any hot flashes. Review of Systems Constitutional: Constitutional: Denies chills, Denies fever(s) and Denies headache(s) ENT: Denies dizziness and Denies headache(s) Cardiovascular: Cardiovascular: Denies chest pain, Denies palpitations and Denies dyspnea Respiratory: Respiratory: Denies cough and Denies dyspnea Gastrointestinal: Gastrointestinal: Denies nausea and Denies vomiting Neurologic: Denies dizziness and Denies headache(s) Endocrine: Endocrine: Denies palpitations Exam Const: General: cooperative, healthy appearing, comfortable and no acute distress Orientation/consciousness: patient oriented x3 Resp: Effort & Inspection: normal respiratory effort Auscultation: clear to auscultation bilaterally Cardio: Rate: regular rate GI: Inspection: non-distended and incision (x4; intact, covered with dermabond) GI Palp: Yes abdominal tenderness (appropriate) and Yes Soft to palpation Auscultation: normal bowel sounds : Other: no vaginal bleeding Skin: General skin exam: normal color Neuro: General: patient oriented x3 Extrem: General: normal to inspection Psych: Appearance: grossly normal Affect: normal affect Attitude: cooperative [employer]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: Obj Data Vital Signs Vital Signs: Vital Signs - 24 hr 12/12/21 07:28 12/12/21 09:23 12/12/21 09:35 Temperature 96.8 F L 97.1 F L Pulse Rate 74 71 72 Respiratory Rate 14 23 H 16 Blood Pressure 111/69 99/55 L 104/67 Pulse Oximetry 100 96 98 Oxygen Delivery Room Air Simple Face Mask Simple Face Mask Oxygen Flow Rate 10 10 12/12/21 09:50 12/12/21 10:05 12/12/21 10:19 Temperature Pulse Rate 72 78 83 Respiratory Rate 15 17 20 Blood Pressure 107/75 103/77 106/73 Pulse Oximetry 100 100 100 Oxygen Delivery Simple Face Mask Room Air Room Air Oxygen Flow Rate 10 12/12/21 11:00 12/12/21 15:45 12/12/21 18:10 Temperature 97.3 F L 97.4 F L 97.3 F L Pulse Rate 80 75 66 Respiratory Rate 18 16 16 Blood Pressure 95/66 L 116/77 119/78 Pulse Oximetry 99 100 100 Oxygen Delivery Oxygen Flow Rate 12/12/21 19:08 12/12/21 18:10 12/13/21 00:45 Temperature 97.3 F L 98.0 F Pulse Rate 66 78 Respiratory Rate 16 16 Blood Pressure 119/78 90/56 L Pulse Oximetry 100 100 Oxygen Delivery Room Air Oxygen Flow Rate 12/13/21 00:45 12/13/21 04:50 12/13/21 04:50 Temperature 98.2 F Pulse Rate 78 74 74 Respiratory Rate 16 16 16 Blood Pressure 104/66 Pulse Oximetry 100 99 99 Oxygen Delivery Room Air Room Air Oxygen Flow Rate Intake/Output Intake/Output: Intake & Output 12/10/21 12/11/21 12/12/21 12/13/21 23:59 23:59 23:59 23:59 Intake Total 2215 350 Output Total 1850 400 Balance 365 -50 Meds/Results Medications: Active Medications Generic Name Dose Route Start Last Admin Trade Nam
[2021-12-13 07:40] VITALS: BP 108/71; PULSE 79; RESP 16; TEMP 37.6; O2SAT 98
[2021-12-13] MEDS: DOCUSATE SODIUM 100 MG CAPSULE PO (08:16)
--- NOTE | 2021-12-13 08:39 | WPDANESPN ---
Anes - Prog Note Post-Op Date/Time: 12/13/21 08:39 Cardiovascular status: normal Respiratory status: normal Airway patency: baseline Mental status: baseline Post-Op hydration status: normal Vital Signs: Last Vital Signs Temp 36.8 C 12/13/21 04:50 Pulse 74 12/13/21 04:50 Resp 16 12/13/21 04:50 BP 104/66 12/13/21 04:50 Pulse Ox 99 12/13/21 04:50 O2 Del Method Room Air 12/13/21 04:50 O2 Flow Rate 10 12/12/21 09:50 Pain Score (VAS): 06/21 I/O: Intake & Output 12/12/21 12/13/21 12/13/21 23:59 07:59 15:59 Intake Total 325 350 Output Total 1150 400 Balance -825 -50 Laboratory Tests 12/13/21 04:59 12/13/21 04:59 12/13/21 12/13/21 04:59 04:59 WBC 8.6 RBC 3.78 L Hgb 11.9 L Hct 34.8 L MCV 92.1 MCH 31.5 MCHC 34.2 RDW 11.7 Plt Count 192 MPV 10.6 H Immature Gran % (Auto) 0.3 Neut % (Auto) 74.1 H Lymph % (Auto) 17.1 L Sterling % (Auto) 8.2 Eos % (Auto) 0.1 Baso % (Auto) 0.2 Lymph # (Auto) 1.47 [place] # (Auto) 0.7 H Eos # (Auto) 0.0 Baso # (Auto) 0.0 Abs Immat Gran (auto) 0.03 Absolute Neuts (auto) 6.4 Absolute Nucleated RBC 0.0 Nucleated RBC % 0.0 Sodium 137 Potassium 3.4 Chloride 105 Carbon Dioxide 23 Anion Gap 9 BUN 6 L Creatinine 0.50 L Estim Creat Clear Calc 104 Estimated GFR > 60 Glucose 96 Calcium 8.2 L Post-procedural complaints: none Patient Feedback: Patient satisfied with anesthetic care.
== END 2021-12-13 11:40 | disposition home or self-care (01) ==
LOC: ANHSURGERY 05:57 → ANHOB2 10:36
PROVIDERS: PCP Family Medicine; Visit Provider Obstetrics & Gynecology
PROC: (CPT 58571; principal; 2021-12-12 07:30)
DX: N92.1 Excessive and frequent menstruation with irregular cycle (principal); R10.2 Pelvic and perineal pain; N73.6 Female pelvic peritoneal adhesions (postinfective); N83.12 Corpus luteum cyst of left ovary; N72 Inflammatory disease of cervix uteri; G89.29 Other chronic pain
CPT/HCPCS: 58571; S2900; 36415; 80048; 85025; 88307; 99199; A9270; J0690; J1100; J1170; J1885; J2250; J2405; J2704; J2710; J3010; J7030; J7120